=== PATIENT | male | born 1980 | race Caucasian/White ===

== ENCOUNTER 2016-08-07 13:05 | Emergency (ER) | payer MEDICAID, OTHER ==
[~2016-08-07] VITALS: Ht 190.5 cm; Wt 66.1 kg
[~2016-08-07 13:05] MED LIST: FLUC150T PO; TRAZ50TA12 PO
[2016-08-07 13:07] VITALS: BP 137/86; PULSE 85; RESP 17; TEMP 97.8; O2SAT 99
[2016-08-07] MEDS ORDERED: LIDOCAINE 1%/EPINEPHrine 1:100,000 SOLN 20 ML VIAL INFIL ONE (15:15)
--- NOTE | 2016-08-07 15:16 | PD ---
HPI Chief Complaint: Pain: Acute or Chronic Time Seen by Provider: 14:30 Travel History International Travel<30 days: No Contact w/Intl Traveler<30days: No Traveled to known affect area: No History of Present Illness HPI 36-year-old male with no significant past medical history presents emergency department for pain and swelling in the right Buttocks area. Patient reports over the last week the area has become increasingly more painful and swollen. He reports several episodes of similar symptoms in this region that spontaneously resolved on their own. He denies testicular swelling or pain he denies rectal pain. He denies fevers, chills, nausea or vomiting. PFSH Past Medical History Medical History: Denies Significant Hx Diminished Hearing: Yes Immunizations Current: Yes ?: Not Past Surgical History Appendectomy: Yes Social History Alcohol Use: Yes (6 PACK/DAILY) Tobacco Use: Yes (ONE PPD) Substance Use: Yes (MARIJUANA) Allergies-Medications (Allergen,Severity, Reaction): Coded Allergies: No Known Allergies (Verified , 08/07/16) Reported Meds & Prescriptions Reported Meds & Active Scripts Active Clindamycin (Clindamycin HCl) 300 Mg Cap 300 Mg PO Q6H Trazodone (Trazodone HCl) 50 Mg Tab 50 Mg PO HS Review of Systems Except as stated in HPI: all other systems reviewed are Neg Physical Exam Narrative GENERAL: [Alert, well-nourished well-appearing young male.-] SKIN: Large fluctuant abscess in left Buttocks region. The abscess does not involve the anus. HEAD: Atraumatic. Normocephalic. EYES: Pupils equal and round. No scleral icterus. No injection or drainage. ENT: No nasal bleeding or discharge. Mucous membranes pink and moist. NECK: Trachea midline. No JVD. CARDIOVASCULAR: Regular rate and rhythm. No murmur appreciated. RESPIRATORY: No accessory muscle use. Clear to auscultation. Breath sounds equal bilaterally. GASTROINTESTINAL: Abdomen soft, non-tender, nondistended. Hepatic and splenic margins not palpable. UROGENITAL: No testicular swelling or pain. MUSCULOSKELETAL: No obvious deformities. No clubbing. No cyanosis. No edema. NEUROLOGICAL: Awake and alert. No obvious cranial nerve deficits. Motor grossly within normal limits. Normal speech. PSYCHIATRIC: Appropriate mood and affect; insight and judgment normal. Data Data Last Documented VS Vital Signs Date Time Temp Pulse Resp B/P Pulse Ox O2 Delivery O2 Flow Rate FiO2 08/07/16 13:07 97.8 85 17 137/86 99 Orders Lidocai-Epi 1%-1:100,000 Inj (Xylocaine- (08/07/16 15:15) MDM Medical Decision Making Medical Screen Exam Complete: Yes Emergency Medical Condition: Yes Medical Record Reviewed: Yes Differential Diagnosis Abscess, cellulitis Narrative Course 36-year-old male with no significant past medical history presents to the emergency room for left buttocks pain and swelling. He reports roughly 7 days ago he noticed a painful lump that became increasingly more painful and more swollen over the week. He reports he's had similar symptoms in the past that spontaneously resolved him around. He denies testicular pain or swelling. He denies rectal pain. He denies fever, chills, nausea or vomiting. He is well- appearing and nontoxic. On exam he has a large fluctuant abscess to the left buttocks that does not involve the anus or testicles. Incision and drainage was performed patient tolerated procedure well. Patient was unable to tolerate packing. Patient was put on antibiotics and instructed to follow with his primary care provider. Return if he develops fever, chills or increasing pain at site. Procedures Procedure Narrative Incision and drainage performed. Area was prepped with Betadine. Draped in a sterile dressing. Sized with 1% lidocaine with epi 2 mL. Incision made with a #11 blade. Large amount of purulent drainage expressed. Patient could not tolerate packing. Diagnosis Primary Impression: Abscess Referrals: Primary Care Physician Patient Instructions: Abscess (ED), General Instructions Departure Forms: Tests/Procedures, Work Release Enter return to work date: August 09, 2016 Scripts Clindamycin 300 Mg [id number] Mg PO Q6H #40 CAP Ref 0 Prov:Sharlene Kwong 08/07/16 Disposition: 01 DISCHARGE HOME Condition: Stable Sharlene Kwong August 07, 2016 15:16
[2016-08-07] MEDS ORDERED: CLIN1CAP6 PO (15:38)
== END 2016-08-07 15:47 | disposition home or self-care (01) ==
LOC: PHEFT 13:05
DX: L02.31 Cutaneous abscess of buttock (principal); F17.200 Nicotine dependence, unspecified, uncomplicated; Z79.899 Other long term (current) drug therapy
CPT/HCPCS: 10060

== ENCOUNTER 2016-09-08 15:34 | Emergency (ER) | payer MEDICAID ==
[~2016-09-08] VITALS: Ht 190.5 cm; Wt 67.5 kg
[~2016-09-08 15:34] MED LIST changes: +CLIN1CAP6 PO; -FLUC150T PO
[2016-09-08 15:35] VITALS: BP 122/84; PULSE 90; RESP 16; TEMP 98.6; O2SAT 98
--- NOTE | 2016-09-08 16:08 | PD ---
HPI Chief Complaint: Foreign Body Time Seen by Provider: 16:00 Travel History International Travel<30 days: No Contact w/Intl Traveler<30days: No Traveled to known affect area: No History of Present Illness HPI 36-year-old male presents emergency department for evaluation of possible foreign body in left foot. Patient reports yesterday evening while in his room he stepped on a sharp object. He reports he removed a sewing needle from the plantar aspect of his left foot. He reports the needle was missing the head and he is concerned it is retained in his foot. He reports mild pain at the site of the puncture wound. He denies fever or chills, drainage from site, increased pain since the event. Tetanus status up-to-date. [facility] Past Medical History Medical History: Denies Significant Hx Diminished Hearing: Yes Immunizations Current: Yes Tetanus Vaccination: < 5 Years Influenza Vaccination: No Past Surgical History Appendectomy: Yes Social History Alcohol Use: Yes (6 PACK/EOD) Tobacco Use: Yes (ONE PPD) Substance Use: Yes (MARIJUANA) Allergies-Medications (Allergen,Severity, Reaction): Coded Allergies: No Known Allergies (Verified , 09/08/16) Reported Meds & Prescriptions Reported Meds & Active Scripts Active Trazodone (Trazodone HCl) 50 Mg Tab 50 Mg PO HS Review of Systems Except as stated in HPI: all other systems reviewed are Neg General / Constitutional: No: Fever Physical Exam Narrative GENERAL: Well-nourished, well-developed patient. SKIN: Focused skin assessment warm/dry. No erythema. No identifiable puncture wound. HEAD: Normocephalic. EYES: No scleral icterus. No injection or drainage. NECK: Supple, trachea midline. No JVD or lymphadenopathy. CARDIOVASCULAR: Regular rate and rhythm without murmurs, gallops, or rubs. RESPIRATORY: Breath sounds equal bilaterally. No accessory muscle use. GASTROINTESTINAL: Abdomen soft, non-tender, nondistended. MUSCULOSKELETAL: No cyanosis, or edema. Left foot: Mild tenderness plantar aspect between the first and second digit. No identifiable puncture wound visualized. No erythema. No fluctuance. BACK: Nontender without obvious deformity. No CVA tenderness. Data Data Last Documented VS Vital Signs Date Time Temp Pulse Resp B/P Pulse Ox O2 Delivery O2 Flow Rate FiO2 09/08/16 15:35 98.6 90 16 122/84 98 Orders Foot, Complete ([id number]) (09/08/16 ) [facility] Medical Decision Making Medical Screen Exam Complete: Yes Emergency Medical Condition: Yes Differential Diagnosis Plantar puncture wound, possible retained foreign body. Narrative Course 36-year-old male presents emergency department for evaluation of possible retained foreign body within the left foot. Patient reports yesterday evening while in his room he was walking barefoot and stepped on something sharp. He reports he removed a sewing needle that was missing its head from the left foot. He is concerned that a portion of sewing needle may be retained within the foot. He denies fever or chills. He is only mild tenderness at the site of puncture wound. No evidence clinically of infection. X-ray pending X-ray left foot is negative for retained radiopaque foreign body. This was discussed with patient. Return precautions and signs and symptoms of infection were discussed with patient. He verbalizes understanding. Diagnosis Primary Impression: Puncture wound of plantar aspect of foot Qualified Code: S91.332A - Puncture wound of plantar aspect of foot, left, initial encounter Referrals: Primary Care Physician Additional Instructions: Ice and elevate the foot. Avoid submerging the foot into water. Watch the area for signs of infection which would include use increased pain, redness, drainage. If he developed the symptoms any to return to the emergency department for reevaluation. Disposition: 01 DISCHARGE HOME Condition: Stable Sharlene Kwong Sep 08, 2016 16:08
--- NOTE | 2016-09-08 16:15 | RADRPT ---
EXAM DATE/TIME: 09/08/2016 16:08 [place] COMPARISON: No previous studies available for comparison. INDICATIONS : Evaluate for foreign body. Patient stepped on sewing needle. MEDICAL HISTORY : None. SURGICAL HISTORY : None. ENCOUNTER: Initial ACUITY: 2 days PAIN SCORE: 2/10 LOCATION: Left foot FINDINGS: Three view examination of the left foot demonstrates no soft tissue swelling, dislocation, or fractur e. There is no radiopaque foreign body. The tarsal bones appear intact. The interphalangeal and me tatarsophalangeal joints are intact. The calcaneus is intact. Bony mineralization is normal. CONCLUSION: No acute disease. No evidence of radiopaque foreign body. Tyree Corona MD on September 08, 2016 at 16:12 Board Certified Radiologist. This report was verified electronically.
[2016-09-08] MEDS ORDERED: TETANUS/DIPHTHERIA TOXOID ADULT 0.5 ML VIAL IM ONE (16:30)
== END 2016-09-08 16:52 | disposition home or self-care (01) ==
LOC: PHED 15:34
DX: S91.332A Puncture wound without foreign body, left foot, initial encounter (principal); W22.8XXA Striking against or struck by other objects, initial encounter; Z23 Encounter for immunization
CPT/HCPCS: 73630; 90714; 96372

== ENCOUNTER 2017-05-03 10:45 | Emergency (ER) | payer MEDICAID ==
[~2017-05-03] VITALS: Ht 190.5 cm; Wt 65.0 kg
[~2017-05-03 10:45] MED LIST changes: -CLIN1CAP6 PO
[2017-05-03 10:49] VITALS: BP 130/58; PULSE 82; RESP 16; TEMP 97.3; O2SAT 98
[2017-05-03] MEDS ORDERED: ERYTOIN10 RIGHT EYE (11:32)
--- NOTE | 2017-05-03 11:33 | PD ---
HPI Chief Complaint: Eye Problems/Injury Time Seen by Provider: 11:14 Travel History International Travel<30 days: No Contact w/Intl Traveler<30days: No Traveled to known affect area: No History of Present Illness HPI This is a 37-year-old male here with right eye redness, irritation, tearing X 5 days. He reports some symptoms in the past with conjunctivitis. He does not wear contact lenses. He denies injury trauma to the eye. He reports mild discomfort and blurred vision due to the tearing. Symptom severity is moderate. No aggravating or alleviating factors. PFSH Past Medical History Depression: Yes Diminished Hearing: No Immunizations Current: Yes Tetanus Vaccination: < 5 Years Influenza Vaccination: No Past Surgical History Appendectomy: Yes Social History Alcohol Use: Yes (4pk or more a day) Tobacco Use: Yes (ONE PPD) Substance Use: Yes (MARIJUANA) Allergies-Medications (Allergen,Severity, Reaction): Coded Allergies: No Known Allergies (Verified Adverse Reaction, Unknown, 05/03/17) Reported Meds & Prescriptions Reported Meds & Active Scripts Active Trazodone (Trazodone HCl) 50 Mg Tab 50 Mg PO HS Review of Systems Except as stated in HPI: all other systems reviewed are Neg Eyes: Positive: Redness, Tearing Physical Exam Narrative GENERAL: Alert and well-appearing 37-year-old male SKIN: Warm and dry. HEAD: Normocephalic. EYES: Right eye injected with clear drainage. Pupils equal, round, react to light. Corneas clear. EOMs intact. No fluorescein dye uptake. NECK: Supple CARDIOVASCULAR: Regular rate and rhythm RESPIRATORY: Breath sounds equal bilaterally. No accessory muscle use. Data Data Last Documented VS Vital Signs Date Time Temp Pulse Resp B/P (MAP) Pulse Ox O2 Delivery O2 Flow Rate FiO2 05/03/17 10:49 97.3 82 16 130/58 (82) 98 MDM Medical Decision Making Medical Screen Exam Complete: Yes Emergency Medical Condition: Yes Differential Diagnosis Conjunctivitis, corneal abrasion, corneal ulcer Narrative Course 37-year-old male here with conjunctivitis of the right eye. Visual acuity intact. No fluorescein dye uptake. 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 Return if he developed new or worsening symptoms Scripts Erythromycin Opth Oint (Erythromycin Opth Oint) 5 Mg/Gm Oint 1 APPLIC RIGHT EYE QID for Infection, #1 TUBE 0 Refills Prov: Sharlene Kwong 05/03/17 Disposition: 01 DISCHARGE HOME Condition: Stable Sharlene Kwong May 03, 2017 11:33
== END 2017-05-03 11:39 | disposition home or self-care (01) ==
LOC: PHEFT 10:45
DX: H10.9 Unspecified conjunctivitis (principal); F17.200 Nicotine dependence, unspecified, uncomplicated; F32.9 Major depressive disorder, single episode, unspecified
CPT/HCPCS: 99283